=== PATIENT | male | born 1975 | race Caucasian/White ===

== ENCOUNTER 2018-07-13 14:03 | Inpatient (IN) | payer MEDICAID ==
[2018-07-13 16:02] LABS: ADD MAN DIFF? NO
[2018-07-13 16:08] LABS: BASOPHIL # 0.2 10^3/ul (0.0-0.1); BASOPHILS % 0.7 % (0.0-2.0); EOSINOPHILS # 0.5 10^3/ul (0.0-0.5); EOSINOPHILS % 2.5 % (0.0-7.0); HEMATOCRIT 41.1 % (42.0-52.0); HEMOGLOBIN 13.6 g/dl (14.0-18.0); LYMPHOCYTES # 1.6 10^3/ul (0.8-2.9); LYMPHOCYTES % 7.5 % (15.0-51.0); MEAN CORPUSCULAR HEMOGLOBIN 27.8 pg (29.0-33.0); MEAN CORPUSCULAR HGB CONC 33.1 g/dl (32.0-37.0); MONOCYTE # 1.5 10^3/ul (0.3-0.9); MONOCYTES % 6.8 % (0.0-11.0); NEUTROPHIL # 16.8 10^3/ul (1.6-7.5); NEUTROPHILS % 77.8 % (39.0-77.0); PLATELET COUNT 671 10^3/UL (140-415); RED BLOOD COUNT 4.89 10^6/ul (4.70-6.10); RED CELL DISTRIBUTION WIDTH 12.4 % (11.5-14.5)
[2018-07-13 16:08] LABS: WHITE BLOOD COUNT 21.6 10^3/ul (4.8-10.8)
[2018-07-13 16:14] LABS: ADD UMIC YES; UR ASCORBIC ACID NEGATIVE (NEGATIVE); UR BILIRUBIN (Dip) NEGATIVE (NEGATIVE); UR BLOOD (Dip) 1+ mg/dL (NEGATIVE); UR CLARITY CLEAR (CLEAR); UR COLOR YELLOW (YELLOW); UR GLUCOSE (Dip) NEGATIVE (NEGATIVE); UR KETONES (Dip) NEGATIVE (NEGATIVE); UR LEUKOCYTE ESTERASE (Dip) NEGATIVE Leu/ul (NEGATIVE); UR MUCUS FEW /HPF (NONE SEEN); UR NITRITE (Dip) NEGATIVE (NEGATIVE); UR RBC 5 /HPF (0-5); UR SPECIFIC GRAVITY (Dip) 1.012 (1.003-1.030); UR TOTAL PROTEIN (Dip) NEGATIVE (NEGATIVE); UR UROBILINOGEN (Dip) NEGATIVE (NEGATIVE); UR WBC 1 /HPF (0-5)
[2018-07-13] MEDS: SOD CHLORIDE 0.9% 1,000 ML IV ×2 (16:15→20:40)
[2018-07-13] MEDS: LORAZEPAM 2 MG INJ IV (16:15)
[2018-07-13 16:25] LABS: ALANINE AMINOTRANSFERASE 58 IU/L (13-69); ALBUMIN 3.9 g/dl (3.3-4.9); ALKALINE PHOSPHATASE 105 IU/L (42-121); AMYLASE 74 U/L (11-123); ANION GAP 15 (8-16); ASPARTATE AMINO TRANSFERASE 26 IU/L (15-46); BILIRUBIN,INDIRECT 0.3 mg/dl (0-1.1); BILIRUBIN,TOTAL 0.3 mg/dl (0.2-1.3); BLOOD UREA NITROGEN 19 mg/dl (7-20); CARBON DIOXIDE 25 mmol/L (21-31); CHLORIDE 105 mmol/L (97-110); CREATININE 0.97 mg/dl (0.61-1.24); GLUCOSE 180 mg/dl (70-220); LIPASE 71 U/L (23-300); POTASSIUM 4.2 mmol/L (3.5-5.1); SODIUM 141 mmol/L (135-144); TOTAL PROTEIN 7.8 g/dl (6.1-8.1)
[2018-07-13 16:29] LABS: INR 1.01; PROTIME 13.4 Sec (11.9-14.9)
[2018-07-13 16:30] LABS: PARTIAL THROMBOPLASTIN TIME 37.9 Sec (23.0-35.0)
[2018-07-13 16:38] LABS: TROPONIN-I < 0.012 ng/ml (0.000-0.120)
[2018-07-13] MEDS: SODIUM CHLORIDE 0.9% 1L BAG IV* (17:21)
[2018-07-13] MEDS: CEFTRIAXONE 1 GM/50 ML (PMX) 50 ML IVPB (17:21)
[2018-07-13 17:30] LABS: AMPHETAMINE/METHAMPHETAMINE Negative (NEGATIVE); BARBITURATES Negative (NEGATIVE); BENZODIAZEPINES Negative (NEGATIVE); CANNABINOIDS Negative (NEGATIVE); COCAINE Negative (NEGATIVE); OPIATES Negative (NEGATIVE)
[2018-07-13] MEDS ORDERED: ACETAMINOPHEN 325 MG TAB PO (17:30)
[2018-07-13] MEDS ORDERED: ONDANSETRON 4 MG INJ IV ×2 (17:30→18:00)
[2018-07-13] MEDS: AZITHROMYCIN 500MG/NS (PMX) 250 ML IV (17:44)
[2018-07-13] MEDS ORDERED: NACL 0.9% 3 ML SYG IV (18:00)
[2018-07-13] MEDS ORDERED: hydrALAzine 20 MG INJ IV (18:00)
[2018-07-13] MEDS ORDERED: HYDROCODONE/APAP (5/325) TAB PO (18:00)
[2018-07-13] MEDS ORDERED: MAGNESIUM HYDROXIDE 30ML CUP PO (18:00)
[2018-07-13] MEDS ORDERED: NITROGLYCERIN (SL) 0.4 MG TAB SL (18:00)
[2018-07-13] MEDS ORDERED: morphine 2 MG INJ IV (18:00)
[2018-07-13] MEDS ORDERED: DOCUSATE SODIUM 100 MG CAP PO (18:00)
[2018-07-13] MEDS ORDERED: NA PHOSPHATE/BIPHOS 133 ML ENEMA PR (18:00)
[2018-07-13] MEDS ORDERED: LORAZEPAM 2 MG INJ IV (18:00)
[2018-07-13 18:43] LABS: LACTIC ACID 1.7 mmol/L (0.5-2.0)
[2018-07-13 18:58] LABS: FREE T4 (FREE THYROXINE) 1.62 ng/dl (0.64-1.79)
[2018-07-13 20:07] LABS: LACTIC ACID 1.3 mmol/L (0.5-2.0)
[2018-07-13] MEDS: GUAIFENESIN 20 MG/ML 5ML CUP PO (20:44)
[2018-07-13] MEDS: HEPARIN 5,000 UNIT/0.5 ML VIAL SC (20:48)
[2018-07-13] MEDS: CEFEPIME 2GM/50 ML (PMX) 50 ML IVPB (22:28)
[2018-07-13] MEDS: ALBUTEROL/IPRATROPIUM (NEB) 3 ML AMP HHN (23:20)
[2018-07-14] MEDS: GUAIFENESIN 20 MG/ML 5ML CUP PO ×3 (00:03→21:40)
[2018-07-14] MEDS: SOD CHLORIDE 0.9% 1,000 ML IV ×3 (03:31→13:32)
[2018-07-14] MEDS: CEFEPIME 2GM/50 ML (PMX) 50 ML IVPB ×3 (05:26→21:23)
[2018-07-14] MEDS: PANTOPRAZOLE (EC) 40 MG TAB PO (05:29)
[2018-07-14 06:54] LABS: ADD MAN DIFF? NO
[2018-07-14 06:57] LABS: ABNORMAL IP MESSAGE 1; BASOPHIL # 0.1 10^3/ul (0.0-0.1); BASOPHILS % 0.6 % (0.0-2.0); EOSINOPHILS # 1.6 10^3/ul (0.0-0.5); EOSINOPHILS % 7.5 % (0.0-7.0); HEMATOCRIT 35.5 % (42.0-52.0); HEMOGLOBIN 11.7 g/dl (14.0-18.0); LYMPHOCYTES # 2.4 10^3/ul (0.8-2.9); LYMPHOCYTES % 11.5 % (15.0-51.0); MEAN CORPUSCULAR HEMOGLOBIN 27.1 pg (29.0-33.0); MEAN CORPUSCULAR VOLUME 82.4 fl (82.0-101.0); MEAN PLATELET VOLUME 9.1 fl (7.4-10.4); MONOCYTES % 9.7 % (0.0-11.0); NEUTROPHILS % 67.7 % (39.0-77.0); PLATELET COUNT 569 10^3/UL (140-415); POSITIVE DIFF @See below; RED BLOOD COUNT 4.31 10^6/ul (4.70-6.10); RED CELL DISTRIBUTION WIDTH 12.6 % (11.5-14.5)
[2018-07-14 06:57] LABS: WHITE BLOOD COUNT 20.7 10^3/ul (4.8-10.8)
[2018-07-14 07:11] LABS: HEMOGLOBIN A1C 5.9 % (0-5.9)
[2018-07-14 07:24] LABS: CHOLESTEROL 102 mg/dl (100-200)
[2018-07-14 07:24] LABS: ANION GAP 10 (8-16); BLOOD UREA NITROGEN 14 mg/dl (7-20); CALCIUM 8.4 mg/dl (8.4-10.2); CARBON DIOXIDE 25 mmol/L (21-31); CHLORIDE 105 mmol/L (97-110); CHOL/HDL RATIO 4.8 RATIO; CREATININE 0.87 mg/dl (0.61-1.24); GLUCOSE 110 mg/dl (70-220); HDL CHOLESTEROL 21 mg/dl (27-67); LDL CHOLESTEROL,CALCULATED 52 mg/dl; MAGNESIUM 2.2 mg/dl (1.7-2.5); PHOSPHORUS 3.2 mg/dl (2.5-4.9); POTASSIUM 4.4 mmol/L (3.5-5.1); SODIUM 136 mmol/L (135-144); TRIGLYCERIDES 144 mg/dl (0-149)
[2018-07-14] MEDS: HEPARIN 5,000 UNIT/0.5 ML VIAL SC ×2 (08:19→21:37)
[2018-07-14] MEDS ORDERED: CEPASTAT LOZENGE MT (10:30)
[2018-07-14 12:43] LABS: LACTIC ACID 1.2 mmol/L (0.5-2.0)
[2018-07-14] MEDS: ACETAMINOPHEN 325 MG TAB PO ×2 (13:32→21:41)
[2018-07-14 16:37] LABS: HIV 1&2 ANTIBODY NEGATIVE (NEGATIVE)
[2018-07-14 18:33] LABS: LACTIC ACID 1.2 mmol/L (0.5-2.0)
[2018-07-15] MEDS: SOD CHLORIDE 0.9% 1,000 ML IV ×3 (00:10→22:28)
[2018-07-15 01:19] LABS: LACTIC ACID 1.6 mmol/L (0.5-2.0)
[2018-07-15] MEDS: CEFEPIME 2GM/50 ML (PMX) 50 ML IVPB ×3 (05:41→22:28)
[2018-07-15] MEDS: GUAIFENESIN 20 MG/ML 5ML CUP PO (05:42)
[2018-07-15] MEDS: PANTOPRAZOLE (EC) 40 MG TAB PO (05:42)
[2018-07-15] MEDS: ACETAMINOPHEN 325 MG TAB PO (05:42)
[2018-07-15 06:13] LABS: ADD MAN DIFF? NO
[2018-07-15 06:28] LABS: ABNORMAL IP MESSAGE 1; BASOPHIL # 0.1 10^3/ul (0.0-0.1); BASOPHILS % 0.6 % (0.0-2.0); EOSINOPHILS # 1.7 10^3/ul (0.0-0.5); EOSINOPHILS % 7.4 % (0.0-7.0); HEMATOCRIT 37.5 % (42.0-52.0); HEMOGLOBIN 12.6 g/dl (14.0-18.0); LYMPHOCYTES # 2.1 10^3/ul (0.8-2.9); LYMPHOCYTES % 9.2 % (15.0-51.0); MEAN CORPUSCULAR HEMOGLOBIN 27.5 pg (29.0-33.0); MEAN CORPUSCULAR HGB CONC 33.6 g/dl (32.0-37.0); MEAN CORPUSCULAR VOLUME 81.7 fl (82.0-101.0); MONOCYTE # 1.9 10^3/ul (0.3-0.9); MONOCYTES % 8.2 % (0.0-11.0); NEUTROPHIL # 16.6 10^3/ul (1.6-7.5); NEUTROPHILS % 71.4 % (39.0-77.0); PLATELET COUNT 483 10^3/UL (140-415); POSITIVE DIFF @See below; RED BLOOD COUNT 4.59 10^6/ul (4.70-6.10); RED CELL DISTRIBUTION WIDTH 12.3 % (11.5-14.5)
[2018-07-15 06:28] LABS: WHITE BLOOD COUNT 23.2 10^3/ul (4.8-10.8)
[2018-07-15 06:44] LABS: ALANINE AMINOTRANSFERASE 28 IU/L (13-69); ALBUMIN 3.2 g/dl (3.3-4.9); ALBUMIN/GLOBULIN RATIO 0.94; ALKALINE PHOSPHATASE 85 IU/L (42-121); ANION GAP 11 (8-16); ASPARTATE AMINO TRANSFERASE 13 IU/L (15-46); BILIRUBIN,INDIRECT 0.5 mg/dl (0-1.1); BILIRUBIN,TOTAL 0.5 mg/dl (0.2-1.3); BLOOD UREA NITROGEN 15 mg/dl (7-20); CALCIUM 8.6 mg/dl (8.4-10.2); CARBON DIOXIDE 25 mmol/L (21-31); CHLORIDE 107 mmol/L (97-110); CREATININE 0.88 mg/dl (0.61-1.24); GLUCOSE 116 mg/dl (70-220); POTASSIUM 4.3 mmol/L (3.5-5.1); SODIUM 139 mmol/L (135-144); TOTAL PROTEIN 6.6 g/dl (6.1-8.1)
[2018-07-15 06:49] LABS: LACTIC ACID 1.2 mmol/L (0.5-2.0)
[2018-07-15] MEDS: HEPARIN 5,000 UNIT/0.5 ML VIAL SC ×2 (10:23→22:41)
[2018-07-15] MEDS: IOHEXOL 300MG/ML 150 ML BTL (10:25)
[2018-07-15] MEDS: SOD CHLORIDE 0.9% 100 ML (10:25)
[2018-07-15] MEDS ORDERED: VANCOMYCIN IV PER PHARMACY XX (10:30)
[2018-07-15] MEDS: LEVOFLOXACIN 500MG/D5W (PMX) 100 ML IVPB (11:16)
[2018-07-15] MEDS: VANCOMYCIN 1.5 GM in SOD CHLORIDE 0.9% 250 ML IVPB (12:00)
[2018-07-16] MEDS: ACETAMINOPHEN 325 MG TAB PO ×3 (00:34→22:56)
[2018-07-16] MEDS: VANCOMYCIN 1.25 GM in SOD CHLORIDE 0.9% 250 ML IVPB ×2 (00:34→12:26)
[2018-07-16] MEDS: SOD CHLORIDE 0.9% 1,000 ML IV ×2 (05:31→16:11)
[2018-07-16] MEDS: PANTOPRAZOLE (EC) 40 MG TAB PO (06:23)
[2018-07-16] MEDS: CEFEPIME 2GM/50 ML (PMX) 50 ML IVPB ×3 (06:24→21:16)
[2018-07-16 06:56] LABS: ADD MAN DIFF? NO
[2018-07-16 07:03] LABS: ABNORMAL IP MESSAGE 1; BASOPHIL # 0.1 10^3/ul (0.0-0.1); BASOPHILS % 0.6 % (0.0-2.0); EOSINOPHILS # 1.7 10^3/ul (0.0-0.5); EOSINOPHILS % 7.5 % (0.0-7.0); HEMATOCRIT 36.5 % (42.0-52.0); HEMOGLOBIN 12.2 g/dl (14.0-18.0); MEAN CORPUSCULAR HEMOGLOBIN 27.3 pg (29.0-33.0); MEAN CORPUSCULAR HGB CONC 33.4 g/dl (32.0-37.0); MEAN CORPUSCULAR VOLUME 81.7 fl (82.0-101.0); MEAN PLATELET VOLUME 9.2 fl (7.4-10.4); MONOCYTE # 1.9 10^3/ul (0.3-0.9); MONOCYTES % 8.3 % (0.0-11.0); NEUTROPHIL # 15.7 10^3/ul (1.6-7.5); NEUTROPHILS % 70.4 % (39.0-77.0); PLATELET COUNT 575 10^3/UL (140-415); POSITIVE DIFF @See below; RED BLOOD COUNT 4.47 10^6/ul (4.70-6.10); RED CELL DISTRIBUTION WIDTH 12.3 % (11.5-14.5)
[2018-07-16 07:03] LABS: WHITE BLOOD COUNT 22.3 10^3/ul (4.8-10.8)
[2018-07-16 07:24] LABS: ANION GAP 11 (8-16); BLOOD UREA NITROGEN 16 mg/dl (7-20); CALCIUM 8.7 mg/dl (8.4-10.2); CARBON DIOXIDE 25 mmol/L (21-31); CHLORIDE 108 mmol/L (97-110); CREATININE 0.89 mg/dl (0.61-1.24); GLUCOSE 126 mg/dl (70-220); POTASSIUM 4.3 mmol/L (3.5-5.1); SODIUM 140 mmol/L (135-144)
[2018-07-16] MEDS: HEPARIN 5,000 UNIT/0.5 ML VIAL SC ×2 (09:00→21:24)
[2018-07-16] MEDS ORDERED: morphine LIQ (10 MG/5 ML) CUP PO (17:30)
[2018-07-17 00:07] LABS: VANCOMYCIN,TROUGH 7.1 ug/ml (10.0-20.0)
[2018-07-17] MEDS: VANCOMYCIN 1.25 GM in SOD CHLORIDE 0.9% 250 ML IVPB (00:37)
[2018-07-17] MEDS: SOD CHLORIDE 0.9% 1,000 ML IV ×4 (01:31→21:31)
[2018-07-17 06:16] LABS: ADD MAN DIFF? NO
[2018-07-17 06:28] LABS: WHITE BLOOD COUNT 20.4 10^3/ul (4.8-10.8)
[2018-07-17 06:28] LABS: ABNORMAL IP MESSAGE 1; BASOPHIL # 0.2 10^3/ul (0.0-0.1); BASOPHILS % 0.8 % (0.0-2.0); EOSINOPHILS % 9.7 % (0.0-7.0); HEMATOCRIT 37.3 % (42.0-52.0); HEMOGLOBIN 12.3 g/dl (14.0-18.0); LYMPHOCYTES # 2.5 10^3/ul (0.8-2.9); LYMPHOCYTES % 12.3 % (15.0-51.0); MONOCYTE # 1.9 10^3/ul (0.3-0.9); MONOCYTES % 9.2 % (0.0-11.0); NEUTROPHIL # 12.9 10^3/ul (1.6-7.5); NEUTROPHILS % 63.5 % (39.0-77.0); PLATELET COUNT 628 10^3/UL (140-415); POSITIVE DIFF @See below; RED BLOOD COUNT 4.55 10^6/ul (4.70-6.10); RED CELL DISTRIBUTION WIDTH 12.6 % (11.5-14.5)
[2018-07-17] MEDS: CEFEPIME 2GM/50 ML (PMX) 50 ML IVPB ×3 (07:00→21:27)
[2018-07-17] MEDS: PANTOPRAZOLE (EC) 40 MG TAB PO (07:00)
[2018-07-17 07:28] LABS: ANION GAP 11 (8-16)
[2018-07-17 07:36] LABS: BLOOD UREA NITROGEN 14 mg/dl (7-20); CALCIUM 8.8 mg/dl (8.4-10.2); CARBON DIOXIDE 26 mmol/L (21-31); CHLORIDE 108 mmol/L (97-110); CREATININE 0.97 mg/dl (0.61-1.24); GLUCOSE 111 mg/dl (70-220); POTASSIUM 4.8 mmol/L (3.5-5.1); SODIUM 140 mmol/L (135-144)
[2018-07-17] MEDS: HEPARIN 5,000 UNIT/0.5 ML VIAL SC ×2 (08:25→21:45)
[2018-07-17] MEDS: VANCOMYCIN 1 GM 250 ML IVPB ×2 (09:59→18:24)
[2018-07-17] MEDS ORDERED: VANCOMYCIN 1.5 GM in SOD CHLORIDE 0.9% 250 ML IVPB (10:00)
[2018-07-17] MEDS: ACETAMINOPHEN 325 MG TAB PO (21:27)
[2018-07-17 23:09] LABS: CRYPTOCOCCAL ANTIGEN - SOURCE SERUM
[2018-07-18] MEDS: ALBUTEROL/IPRATROPIUM (NEB) 3 ML AMP HHN (00:07)
[2018-07-18] MEDS: VANCOMYCIN 1 GM 250 ML IVPB ×3 (01:57→18:32)
[2018-07-18 06:15] LABS: ADD MAN DIFF? NO
[2018-07-18] MEDS: CEFEPIME 2GM/50 ML (PMX) 50 ML IVPB ×3 (06:23→21:57)
[2018-07-18] MEDS: SOD CHLORIDE 0.9% 1,000 ML IV ×2 (06:23→17:39)
[2018-07-18] MEDS: PANTOPRAZOLE (EC) 40 MG TAB PO (06:23)
[2018-07-18 06:38] LABS: WHITE BLOOD COUNT 19.9 10^3/ul (4.8-10.8)
[2018-07-18 06:38] LABS: ABNORMAL IP MESSAGE 1; BASOPHIL # 0.2 10^3/ul (0.0-0.1); EOSINOPHILS % 10.1 % (0.0-7.0); HEMATOCRIT 36.8 % (42.0-52.0); HEMOGLOBIN 12.3 g/dl (14.0-18.0); LYMPHOCYTES # 2.2 10^3/ul (0.8-2.9); LYMPHOCYTES % 10.8 % (15.0-51.0); MEAN CORPUSCULAR HEMOGLOBIN 27.5 pg (29.0-33.0); MEAN CORPUSCULAR HGB CONC 33.4 g/dl (32.0-37.0); MEAN CORPUSCULAR VOLUME 82.1 fl (82.0-101.0); MEAN PLATELET VOLUME 9.2 fl (7.4-10.4); MONOCYTE # 2.1 10^3/ul (0.3-0.9); MONOCYTES % 10.5 % (0.0-11.0); NEUTROPHIL # 12.5 10^3/ul (1.6-7.5); NEUTROPHILS % 62.5 % (39.0-77.0); PLATELET COUNT 647 10^3/UL (140-415); POSITIVE DIFF @See below; RED BLOOD COUNT 4.48 10^6/ul (4.70-6.10); RED CELL DISTRIBUTION WIDTH 12.5 % (11.5-14.5)
[2018-07-18 06:56] LABS: ANION GAP 11 (8-16); BLOOD UREA NITROGEN 14 mg/dl (7-20); CALCIUM 8.6 mg/dl (8.4-10.2); CARBON DIOXIDE 27 mmol/L (21-31); CHLORIDE 107 mmol/L (97-110); CREATININE 0.97 mg/dl (0.61-1.24); GLUCOSE 114 mg/dl (70-220); POTASSIUM 4.7 mmol/L (3.5-5.1); SODIUM 140 mmol/L (135-144)
[2018-07-18 08:16] LABS: BASOPHIL #M 0.1 10^3/ul (0.0-0.0); BASOPHILS % (M) 1 % (0-2); EOSINOPHILS % (M) 7 % (0-7); GIANT THROMBO% (M) 1 % (0-0); LYMPHOCYTES #M 1.9 10^3/ul (0.8-2.9); LYMPHOCYTES % (M) 10 % (15-51); MONOCYTE #M 1.9 10^3/ul (0.3-0.9); MONOCYTES % (M) 10 % (0-11); MYELOCYTES #M 0.3 10^3/ul (0.0-0.0); MYELOCYTES % (M) 2 % (0-0); PLASMA CELLS #M 0.1 10^3/ul (0.0-0.0); PLASMAC%(M) 1 % (0); PLATELET ESTIMATE INCREASED; SEGMENTED NEUTROPHILS (M) % 69 % (39-77); SMUDGE%M 7 % (0-0)
[2018-07-18] MEDS: HEPARIN 5,000 UNIT/0.5 ML VIAL SC ×2 (08:51→21:00)
[2018-07-18] MEDS: VORICONAZOLE 200 MG/100 ML 100 ML IVPB ×2 (12:24→23:31)
[2018-07-18] MEDS: ACETAMINOPHEN 325 MG TAB PO ×2 (15:26→23:43)
[2018-07-18 19:10] LABS: VANCOMYCIN,TROUGH 9.3 ug/ml (10.0-20.0)
[2018-07-19] MEDS: VANCOMYCIN 1 GM 250 ML IVPB (02:08)
[2018-07-19] MEDS: SOD CHLORIDE 0.9% 1,000 ML IV ×3 (03:31→23:31)
[2018-07-19] MEDS: CEFEPIME 2GM/50 ML (PMX) 50 ML IVPB ×3 (05:24→22:08)
[2018-07-19] MEDS: PANTOPRAZOLE (EC) 40 MG TAB PO (06:00)
[2018-07-19 06:47] LABS: ADD MAN DIFF? NO
[2018-07-19 06:50] LABS: WHITE BLOOD COUNT 20.5 10^3/ul (4.8-10.8)
[2018-07-19 06:50] LABS: ABNORMAL IP MESSAGE 1; BASOPHIL # 0.2 10^3/ul (0.0-0.1); EOSINOPHILS # 2.5 10^3/ul (0.0-0.5); HEMATOCRIT 37.1 % (42.0-52.0); HEMOGLOBIN 12.3 g/dl (14.0-18.0); LYMPHOCYTES # 2.3 10^3/ul (0.8-2.9); LYMPHOCYTES % 11.1 % (15.0-51.0); MEAN CORPUSCULAR HEMOGLOBIN 27.2 pg (29.0-33.0); MEAN CORPUSCULAR HGB CONC 33.2 g/dl (32.0-37.0); MEAN CORPUSCULAR VOLUME 81.9 fl (82.0-101.0); MONOCYTES % 9.9 % (0.0-11.0); NEUTROPHIL # 12.5 10^3/ul (1.6-7.5); NEUTROPHILS % 60.8 % (39.0-77.0); PLATELET COUNT 609 10^3/UL (140-415); POSITIVE DIFF @See below; RED BLOOD COUNT 4.53 10^6/ul (4.70-6.10); RED CELL DISTRIBUTION WIDTH 12.6 % (11.5-14.5)
[2018-07-19] MEDS ORDERED: PROPOFOL 200 MG INJ (07:00)
[2018-07-19 07:13] LABS: ANION GAP 12 (8-16); BLOOD UREA NITROGEN 15 mg/dl (7-20); CALCIUM 8.5 mg/dl (8.4-10.2); CARBON DIOXIDE 24 mmol/L (21-31); CHLORIDE 109 mmol/L (97-110); CREATININE 0.85 mg/dl (0.61-1.24); GLUCOSE 121 mg/dl (70-220); POTASSIUM 4.7 mmol/L (3.5-5.1); SODIUM 140 mmol/L (135-144)
[2018-07-19] MEDS: HEPARIN 5,000 UNIT/0.5 ML VIAL SC ×2 (09:00→21:51)
[2018-07-19] MEDS: VORICONAZOLE 200 MG/100 ML 100 ML IVPB ×2 (09:44→21:44)
[2018-07-19] MEDS ORDERED: LIDOCAINE 1% (MDV) 20 ML INJ (10:47)
[2018-07-19] MEDS ORDERED: MIDAZOLAM 1 MG/ML 2 ML INJ (10:49)
[2018-07-19] MEDS ORDERED: DIPHENHYDRAMINE 50 MG INJ IV (11:00)
[2018-07-19] MEDS ORDERED: FENTAnyl 50 MCG/ML VIAL IV ×3 (11:00)
[2018-07-19] MEDS ORDERED: ONDANSETRON 4 MG INJ IV (11:00)
[2018-07-19] MEDS ORDERED: PROCHLORPERAZINE 10 MG INJ IV (11:00)
[2018-07-19] MEDS ORDERED: HYDROmorphONE 1 MG/5 ML IV SYRINGE IV ×3 (11:00)
[2018-07-19] MEDS ORDERED: MEPERIDINE 25 MG INJ IV (11:00)
[2018-07-19] MEDS ORDERED: LIDOCAINE 2% (SDV) 5 ML INJ (11:01)
[2018-07-19] MEDS ORDERED: SUCCINYLCHOLINE CHLORIDE 100 MG/5 ML SYG IV (11:01)
[2018-07-19] MEDS ORDERED: PHENYLephrine (100 MCG/ML) 5ML SYG ×2 (11:01→11:16)
[2018-07-19] MEDS ORDERED: PROPOFOL 20 ML (11:01)
[2018-07-19] MEDS ORDERED: DEXAMETHASONE 4 MG/ML 1 ML INJ (11:11)
[2018-07-19] MEDS ORDERED: ONDANSETRON 4 MG INJ (11:11)
[2018-07-19] MEDS ORDERED: morphine 2 MG INJ (11:34)
[2018-07-19] MEDS: morphine 2 MG INJ IV ×3 (11:45→11:59)
[2018-07-19] MEDS: VANCOMYCIN 1.25 GM in SOD CHLORIDE 0.9% 250 ML IVPB ×3 (14:06→22:45)
[2018-07-20] MEDS: PANTOPRAZOLE (EC) 40 MG TAB PO (05:19)
[2018-07-20] MEDS: CEFEPIME 2GM/50 ML (PMX) 50 ML IVPB ×3 (05:19→21:21)
[2018-07-20] MEDS: VANCOMYCIN 1.25 GM in SOD CHLORIDE 0.9% 250 ML IVPB ×3 (05:19→22:15)
[2018-07-20 06:56] LABS: ADD MAN DIFF? NO
[2018-07-20 06:59] LABS: ABNORMAL IP MESSAGE 1; BASOPHIL # 0.1 10^3/ul (0.0-0.1); BASOPHILS % 0.5 % (0.0-2.0); EOSINOPHILS # 0.1 10^3/ul (0.0-0.5); EOSINOPHILS % 0.3 % (0.0-7.0); HEMATOCRIT 34.4 % (42.0-52.0); HEMOGLOBIN 11.4 g/dl (14.0-18.0); LYMPHOCYTES # 1.9 10^3/ul (0.8-2.9); LYMPHOCYTES % 8.1 % (15.0-51.0); MEAN CORPUSCULAR HEMOGLOBIN 27.1 pg (29.0-33.0); MEAN CORPUSCULAR HGB CONC 33.1 g/dl (32.0-37.0); MEAN CORPUSCULAR VOLUME 81.9 fl (82.0-101.0); MEAN PLATELET VOLUME 9.5 fl (7.4-10.4); MONOCYTE # 1.8 10^3/ul (0.3-0.9); MONOCYTES % 7.6 % (0.0-11.0); NEUTROPHIL # 18.7 10^3/ul (1.6-7.5); PLATELET COUNT 617 10^3/UL (140-415); POSITIVE DIFF @See below; RED CELL DISTRIBUTION WIDTH 12.7 % (11.5-14.5)
[2018-07-20 06:59] LABS: WHITE BLOOD COUNT 23.5 10^3/ul (4.8-10.8)
[2018-07-20 07:20] LABS: ANION GAP 14 (8-16); BLOOD UREA NITROGEN 17 mg/dl (7-20); CARBON DIOXIDE 24 mmol/L (21-31); CHLORIDE 107 mmol/L (97-110); CREATININE 0.86 mg/dl (0.61-1.24); GLUCOSE 137 mg/dl (70-220); POTASSIUM 5.5 mmol/L (3.5-5.1); SODIUM 139 mmol/L (135-144)
[2018-07-20] MEDS: VORICONAZOLE 200 MG/100 ML 100 ML IVPB ×2 (08:45→21:22)
[2018-07-20] MEDS: HEPARIN 5,000 UNIT/0.5 ML VIAL SC ×2 (08:53→21:38)
[2018-07-20] MEDS: SOD CHLORIDE 0.9% 1,000 ML IV ×2 (08:53→17:21)
[2018-07-20 14:10] LABS: VANCOMYCIN,TROUGH 13.8 ug/ml (10.0-20.0)
[2018-07-20] MEDS: ACETAMINOPHEN 325 MG TAB PO (23:06)
[2018-07-21] MEDS: PANTOPRAZOLE (EC) 40 MG TAB PO (05:09)
[2018-07-21] MEDS: SOD CHLORIDE 0.9% 1,000 ML IV ×2 (05:12→15:31)
[2018-07-21] MEDS: CEFEPIME 2GM/50 ML (PMX) 50 ML IVPB ×3 (05:12→21:35)
[2018-07-21] MEDS: VANCOMYCIN 1.25 GM in SOD CHLORIDE 0.9% 250 ML IVPB ×3 (05:12→21:35)
[2018-07-21 07:01] LABS: ADD MAN DIFF? NO
[2018-07-21 07:05] LABS: ABNORMAL IP MESSAGE 1; BASOPHIL # 0.2 10^3/ul (0.0-0.1); EOSINOPHILS # 1.6 10^3/ul (0.0-0.5); EOSINOPHILS % 8.6 % (0.0-7.0); HEMATOCRIT 37.1 % (42.0-52.0); HEMOGLOBIN 12.2 g/dl (14.0-18.0); LYMPHOCYTES # 2.8 10^3/ul (0.8-2.9); LYMPHOCYTES % 14.5 % (15.0-51.0); MEAN CORPUSCULAR HEMOGLOBIN 27.1 pg (29.0-33.0); MEAN CORPUSCULAR HGB CONC 32.9 g/dl (32.0-37.0); MEAN CORPUSCULAR VOLUME 82.4 fl (82.0-101.0); MEAN PLATELET VOLUME 9.8 fl (7.4-10.4); MONOCYTE # 1.9 10^3/ul (0.3-0.9); MONOCYTES % 10.1 % (0.0-11.0); NEUTROPHIL # 11.7 10^3/ul (1.6-7.5); NEUTROPHILS % 61.6 % (39.0-77.0); PLATELET COUNT 639 10^3/UL (140-415); POSITIVE DIFF @See below
[2018-07-21 07:05] LABS: WHITE BLOOD COUNT 19.1 10^3/ul (4.8-10.8)
[2018-07-21 07:26] LABS: ANION GAP 11 (8-16); BLOOD UREA NITROGEN 17 mg/dl (7-20); CALCIUM 8.8 mg/dl (8.4-10.2); CARBON DIOXIDE 25 mmol/L (21-31); CHLORIDE 108 mmol/L (97-110); CREATININE 0.96 mg/dl (0.61-1.24); GLUCOSE 120 mg/dl (70-220); POTASSIUM 4.2 mmol/L (3.5-5.1); SODIUM 140 mmol/L (135-144)
[2018-07-21] MEDS: VORICONAZOLE 200 MG/100 ML 100 ML IVPB ×2 (08:48→20:42)
[2018-07-21] MEDS: HEPARIN 5,000 UNIT/0.5 ML VIAL SC ×2 (08:56→20:50)
[2018-07-21] MEDS: DIPHENHYDRAMINE 25 MG CAP PO (21:33)
[2018-07-21] MEDS: ACETAMINOPHEN 325 MG TAB PO (21:34)
[2018-07-22] MEDS: SOD CHLORIDE 0.9% 1,000 ML IV ×2 (01:31→05:18)
[2018-07-22] MEDS: PANTOPRAZOLE (EC) 40 MG TAB PO (05:17)
[2018-07-22] MEDS: VANCOMYCIN 1.25 GM in SOD CHLORIDE 0.9% 250 ML IVPB ×2 (05:18→13:30)
[2018-07-22] MEDS: CEFEPIME 2GM/50 ML (PMX) 50 ML IVPB ×2 (05:18→13:00)
[2018-07-22] MEDS: VORICONAZOLE 200 MG/100 ML 100 ML IVPB ×3 (08:03→21:43)
[2018-07-22] MEDS: ACETAMINOPHEN 325 MG TAB PO ×3 (08:04→21:43)
[2018-07-22] MEDS: HEPARIN 5,000 UNIT/0.5 ML VIAL SC ×2 (09:00→21:45)
[2018-07-22] MEDS: ALBUTEROL/IPRATROPIUM (NEB) 3 ML AMP HHN (13:57)
[2018-07-23] MEDS: VANCOMYCIN 1.25 GM in SOD CHLORIDE 0.9% 250 ML IVPB (00:46)
[2018-07-23] MEDS: CEFEPIME 2GM/50 ML (PMX) 50 ML IVPB ×4 (00:47→22:30)
[2018-07-23] MEDS: ZOLPIDEM 5 MG TAB PO ×2 (02:06→22:31)
[2018-07-23 04:57] LABS: ADD MAN DIFF? NO
[2018-07-23 05:02] LABS: ABNORMAL IP MESSAGE 1; BASOPHIL # 0.1 10^3/ul (0.0-0.1); BASOPHILS % 0.7 % (0.0-2.0); EOSINOPHILS # 3.7 10^3/ul (0.0-0.5); EOSINOPHILS % 18.2 % (0.0-7.0); HEMATOCRIT 38.2 % (42.0-52.0); HEMOGLOBIN 12.7 g/dl (14.0-18.0); LYMPHOCYTES # 2.6 10^3/ul (0.8-2.9); LYMPHOCYTES % 12.7 % (15.0-51.0); MEAN CORPUSCULAR HEMOGLOBIN 27.3 pg (29.0-33.0); MEAN CORPUSCULAR HGB CONC 33.2 g/dl (32.0-37.0); MEAN CORPUSCULAR VOLUME 82.2 fl (82.0-101.0); MONOCYTE # 1.8 10^3/ul (0.3-0.9); NEUTROPHIL # 11.2 10^3/ul (1.6-7.5); NEUTROPHILS % 55.3 % (39.0-77.0); PLATELET COUNT 612 10^3/UL (140-415); POSITIVE DIFF @See below; RED BLOOD COUNT 4.65 10^6/ul (4.70-6.10); RED CELL DISTRIBUTION WIDTH 12.7 % (11.5-14.5)
[2018-07-23 05:02] LABS: WHITE BLOOD COUNT 20.3 10^3/ul (4.8-10.8)
[2018-07-23 05:32] LABS: ANION GAP 11 (8-16); BLOOD UREA NITROGEN 13 mg/dl (7-20); CALCIUM 9.1 mg/dl (8.4-10.2); CARBON DIOXIDE 28 mmol/L (21-31); CHLORIDE 105 mmol/L (97-110); CREATININE 1.05 mg/dl (0.61-1.24); GLUCOSE 116 mg/dl (70-220); MAGNESIUM 2.5 mg/dl (1.7-2.5); PHOSPHORUS 3.2 mg/dl (2.5-4.9); POTASSIUM 4.6 mmol/L (3.5-5.1); SODIUM 139 mmol/L (135-144)
[2018-07-23 05:42] LABS: VANCOMYCIN,TROUGH 31.1 ug/ml (10.0-20.0)
[2018-07-23] MEDS: PANTOPRAZOLE (EC) 40 MG TAB PO (05:44)
[2018-07-23] MEDS: HEPARIN 5,000 UNIT/0.5 ML VIAL SC ×3 (09:00→20:32)
[2018-07-23] MEDS: VORICONAZOLE 200 MG/100 ML 100 ML IVPB ×2 (09:32→20:30)
[2018-07-23] MEDS: ACETAMINOPHEN 325 MG TAB PO (14:37)
[2018-07-23] MEDS ORDERED: VANCOMYCIN 1.5 GM in SOD CHLORIDE 0.9% 250 ML IVPB (23:00)
[2018-07-23] MEDS: VANCOMYCIN 1.5 GM in SOD CHLORIDE 0.9% 250 ML IVPB (23:30)
[2018-07-24] MEDS: ACETAMINOPHEN 325 MG TAB PO (00:36)
[2018-07-24] MEDS: IBUPROFEN 400 MG TAB PO (01:39)
[2018-07-24] MEDS: PANTOPRAZOLE (EC) 40 MG TAB PO (05:27)
[2018-07-24] MEDS: CEFEPIME 2GM/50 ML (PMX) 50 ML IVPB ×3 (05:28→23:26)
[2018-07-24 06:41] LABS: ADD MAN DIFF? NO
[2018-07-24 06:45] LABS: WHITE BLOOD COUNT 18.8 10^3/ul (4.8-10.8)
[2018-07-24 06:45] LABS: ABNORMAL IP MESSAGE 1; BASOPHIL # 0.1 10^3/ul (0.0-0.1); BASOPHILS % 0.6 % (0.0-2.0); EOSINOPHILS # 3.7 10^3/ul (0.0-0.5); EOSINOPHILS % 19.8 % (0.0-7.0); HEMATOCRIT 36.8 % (42.0-52.0); HEMOGLOBIN 11.9 g/dl (14.0-18.0); LYMPHOCYTES # 2.4 10^3/ul (0.8-2.9); LYMPHOCYTES % 12.8 % (15.0-51.0); MEAN CORPUSCULAR HEMOGLOBIN 26.7 pg (29.0-33.0); MEAN CORPUSCULAR HGB CONC 32.3 g/dl (32.0-37.0); MEAN CORPUSCULAR VOLUME 82.7 fl (82.0-101.0); MEAN PLATELET VOLUME 9.4 fl (7.4-10.4); MONOCYTE # 1.8 10^3/ul (0.3-0.9); MONOCYTES % 9.4 % (0.0-11.0); NEUTROPHILS % 53.3 % (39.0-77.0); PLATELET COUNT 587 10^3/UL (140-415); POSITIVE DIFF @See below; RED BLOOD COUNT 4.45 10^6/ul (4.70-6.10); RED CELL DISTRIBUTION WIDTH 12.7 % (11.5-14.5)
[2018-07-24 07:31] LABS: ANION GAP 12 (8-16); BLOOD UREA NITROGEN 19 mg/dl (7-20); CARBON DIOXIDE 26 mmol/L (21-31); CHLORIDE 105 mmol/L (97-110); CREATININE 1.15 mg/dl (0.61-1.24); GLUCOSE 120 mg/dl (70-220); POTASSIUM 4.8 mmol/L (3.5-5.1); SODIUM 138 mmol/L (135-144)
[2018-07-24] MEDS: HEPARIN 5,000 UNIT/0.5 ML VIAL SC ×2 (09:00→20:45)
[2018-07-24] MEDS: SOD CHLORIDE 0.9% 250 ML (09:23)
[2018-07-24] MEDS: FENTAnyl 50 MCG/ML VIAL (09:23)
[2018-07-24] MEDS: MIDAZOLAM 1 MG/ML 2 ML INJ (09:23)
[2018-07-24] MEDS: VORICONAZOLE 200 MG/100 ML 100 ML IVPB ×2 (11:00→20:44)
[2018-07-24] MEDS: VANCOMYCIN 1.5 GM in SOD CHLORIDE 0.9% 250 ML IVPB (12:57)
[2018-07-24] MEDS: METHYLPREDNISOLONE 40 MG INJ IV ×2 (14:44→22:29)
[2018-07-24] MEDS: ZOLPIDEM 5 MG TAB PO (22:31)
[2018-07-24] MEDS: DIPHENHYDRAMINE 25 MG CAP PO (23:26)
[2018-07-25] MEDS: VANCOMYCIN 1.5 GM in SOD CHLORIDE 0.9% 250 ML IVPB ×2 (00:11→15:00)
[2018-07-25 05:50] LABS: ADD MAN DIFF? NO
[2018-07-25 05:58] LABS: WHITE BLOOD COUNT 13.3 10^3/ul (4.8-10.8)
[2018-07-25 05:58] LABS: BASOPHILS % 0.3 % (0.0-2.0); EOSINOPHILS % 0.2 % (0.0-7.0); HEMATOCRIT 37.1 % (42.0-52.0); HEMOGLOBIN 12.3 g/dl (14.0-18.0); LYMPHOCYTES # 1.4 10^3/ul (0.8-2.9); LYMPHOCYTES % 10.3 % (15.0-51.0); MEAN CORPUSCULAR HEMOGLOBIN 27.2 pg (29.0-33.0); MEAN CORPUSCULAR HGB CONC 33.2 g/dl (32.0-37.0); MEAN CORPUSCULAR VOLUME 81.9 fl (82.0-101.0); MEAN PLATELET VOLUME 9.4 fl (7.4-10.4); MONOCYTE # 0.3 10^3/ul (0.3-0.9); MONOCYTES % 2.4 % (0.0-11.0); NEUTROPHILS % 82.7 % (39.0-77.0); PLATELET COUNT 661 10^3/UL (140-415); RED BLOOD COUNT 4.53 10^6/ul (4.70-6.10); RED CELL DISTRIBUTION WIDTH 12.5 % (11.5-14.5)
[2018-07-25] MEDS: METHYLPREDNISOLONE 40 MG INJ IV ×3 (06:16→22:10)
[2018-07-25] MEDS: CEFEPIME 2GM/50 ML (PMX) 50 ML IVPB ×3 (06:16→22:10)
[2018-07-25] MEDS: PANTOPRAZOLE (EC) 40 MG TAB PO (06:26)
[2018-07-25 06:34] LABS: ANION GAP 12 (8-16); BLOOD UREA NITROGEN 20 mg/dl (7-20); CALCIUM 9.2 mg/dl (8.4-10.2); CARBON DIOXIDE 24 mmol/L (21-31); CHLORIDE 108 mmol/L (97-110); CREATININE 0.88 mg/dl (0.61-1.24); GLUCOSE 176 mg/dl (70-220); POTASSIUM 5.2 mmol/L (3.5-5.1); SODIUM 139 mmol/L (135-144)
[2018-07-25] MEDS: HEPARIN 5,000 UNIT/0.5 ML VIAL SC ×2 (09:15→20:22)
[2018-07-25] MEDS: VORICONAZOLE 200 MG/100 ML 100 ML IVPB ×2 (10:44→20:21)
[2018-07-25 12:51] LABS: VANCOMYCIN,TROUGH 9.3 ug/ml (10.0-20.0)
[2018-07-25] MEDS: ZOLPIDEM 5 MG TAB PO (22:10)
[2018-07-25] MEDS: DIPHENHYDRAMINE 25 MG CAP PO (22:45)
[2018-07-26] MEDS: VANCOMYCIN 1 GM 250 ML IVPB ×3 (00:44→16:59)
[2018-07-26] MEDS: PANTOPRAZOLE (EC) 40 MG TAB PO (06:07)
[2018-07-26] MEDS: CEFEPIME 2GM/50 ML (PMX) 50 ML IVPB ×2 (06:07→15:32)
[2018-07-26] MEDS: METHYLPREDNISOLONE 40 MG INJ IV ×2 (06:07→15:31)
[2018-07-26 06:23] LABS: ADD MAN DIFF? NO
[2018-07-26 06:27] LABS: WHITE BLOOD COUNT 21.8 10^3/ul (4.8-10.8)
[2018-07-26 06:27] LABS: BASOPHILS % 0.1 % (0.0-2.0); HEMOGLOBIN 11.6 g/dl (14.0-18.0); LYMPHOCYTES # 1.4 10^3/ul (0.8-2.9); LYMPHOCYTES % 6.3 % (15.0-51.0); MEAN CORPUSCULAR HEMOGLOBIN 27.2 pg (29.0-33.0); MEAN CORPUSCULAR HGB CONC 33.1 g/dl (32.0-37.0); MEAN PLATELET VOLUME 9.5 fl (7.4-10.4); MONOCYTE # 0.9 10^3/ul (0.3-0.9); MONOCYTES % 4.1 % (0.0-11.0); NEUTROPHIL # 18.9 10^3/ul (1.6-7.5); NEUTROPHILS % 86.4 % (39.0-77.0); PLATELET COUNT 647 10^3/UL (140-415); RED BLOOD COUNT 4.27 10^6/ul (4.70-6.10)
[2018-07-26 07:15] LABS: ANION GAP 12 (8-16); BLOOD UREA NITROGEN 23 mg/dl (7-20); CALCIUM 9.2 mg/dl (8.4-10.2); CARBON DIOXIDE 25 mmol/L (21-31); CHLORIDE 107 mmol/L (97-110); CREATININE 0.94 mg/dl (0.61-1.24); GLUCOSE 183 mg/dl (70-220); SODIUM 139 mmol/L (135-144)
[2018-07-26] MEDS: HEPARIN 5,000 UNIT/0.5 ML VIAL SC (09:24)
[2018-07-26] MEDS: VORICONAZOLE 200 MG/100 ML 100 ML IVPB (11:01)
== END 2018-07-26 18:41 | disposition home or self-care (01) | DRG 871 ==
LOC: TEL 07-14 18:13 → E/R 14:03 → TEL 18:55 → PP2 07-22 17:26 → TEL 17:29
PROC: 0B9J8ZX Drainage of Left Lower Lung Lobe, Via Natural or Artificial Opening Endoscopic, Diagnostic (ICD-10-PCS; principal; 2018-07-19 10:30)
PROC: 0B9G8ZX Drainage of Left Upper Lung Lobe, Via Natural or Artificial Opening Endoscopic, Diagnostic (ICD-10-PCS; 2018-07-19 10:30)
DX: A41.9 Sepsis, unspecified organism (principal); J18.9 Pneumonia, unspecified organism; I10 Essential (primary) hypertension; R91.8 Other nonspecific abnormal finding of lung field; Z86.61 Personal history of infections of the central nervous system
CPT/HCPCS: 36415; 71045; 71250; 71260; 80048; 80053; 80061; 80202; 80307; 81001; 82150; 83036; 83605; 83690; 83735; 84100; 84439; 84443; 84484; 85025; 85610; 85730; 86606; 86635; 86641; 86703; 87040; 87070; 87086; 87102; 87116; 87556; 94640; 94664; 96361; 96374; 96375; 97161; 99285-25

== ENCOUNTER 2019-04-21 08:49 | Emergency (ER) | payer OTHER, MEDICAID ==
[2019-04-21 09:45] LABS: ADD MAN DIFF? NO
[2019-04-21 09:48] LABS: BASOPHIL # 0.1 10^3/ul (0.0-0.1); EOSINOPHILS # 0.1 10^3/ul (0.0-0.5); EOSINOPHILS % 0.8 % (0.0-7.0); HEMATOCRIT 45.8 % (42.0-52.0); HEMOGLOBIN 15.3 g/dl (14.0-18.0); LYMPHOCYTES # 1.6 10^3/ul (0.8-2.9); LYMPHOCYTES % 17.8 % (15.0-51.0); MEAN CORPUSCULAR HEMOGLOBIN 26.9 pg (29.0-33.0); MEAN CORPUSCULAR HGB CONC 33.4 g/dl (32.0-37.0); MEAN CORPUSCULAR VOLUME 80.6 fl (82.0-101.0); MEAN PLATELET VOLUME 9.8 fl (7.4-10.4); MONOCYTE # 0.8 10^3/ul (0.3-0.9); MONOCYTES % 8.5 % (0.0-11.0); NEUTROPHIL # 6.3 10^3/ul (1.6-7.5); NEUTROPHILS % 69.8 % (39.0-77.0); PLATELET COUNT 352 10^3/UL (140-415); RED BLOOD COUNT 5.68 10^6/ul (4.70-6.10); RED CELL DISTRIBUTION WIDTH 13.2 % (11.5-14.5)
[2019-04-21 10:04] LABS: INR 0.88; PT RATIO 0.9
[2019-04-21 10:05] LABS: PARTIAL THROMBOPLASTIN TIME 29.2 Sec (23.0-35.0)
[2019-04-21 10:06] LABS: ALANINE AMINOTRANSFERASE 28 IU/L (13-69); ALBUMIN 4.8 g/dl (3.3-4.9); ALBUMIN/GLOBULIN RATIO 1.23; ALKALINE PHOSPHATASE 100 IU/L (42-121); ANION GAP 10 (5-13); ASPARTATE AMINO TRANSFERASE 24 IU/L (15-46); BILIRUBIN,INDIRECT 0.7 mg/dl (0-1.1); BILIRUBIN,TOTAL 0.7 mg/dl (0.2-1.3); BLOOD UREA NITROGEN 28 mg/dl (7-20); CALCIUM 9.9 mg/dl (8.4-10.2); CARBON DIOXIDE 26 mmol/L (21-31); CHLORIDE 108 mmol/L (97-110); CREATININE 1.02 mg/dl (0.61-1.24); Estimated GFR > 60 mL/min (>60); GLUCOSE 143 mg/dl (70-220); POTASSIUM 4.7 mmol/L (3.5-5.1); SODIUM 144 mmol/L (135-144); TOTAL PROTEIN 8.7 g/dl (6.1-8.1)
== END 2019-04-21 11:36 | disposition home or self-care (01) ==
LOC: FTE 11:36
DX: J18.9 Pneumonia, unspecified organism (principal); I10 Essential (primary) hypertension
CPT/HCPCS: 36415; 71045; 80053; 85025; 85610; 85730; 99284-25